=== PATIENT | female | born 1930 | race Hispanic/Latino ===

== ENCOUNTER 2019-07-03 11:42 | Emergency (ER) | payer MEDICARE, OTHER ==
[~2019-07-03] VITALS: Ht 137.2 cm; Wt 49.9 kg
[~2019-07-03 11:42] MED LIST: COUMADIN5 MG PO; CREON DR 24,001 EACH PO; FLORASTOR250 MG PO; LEVOTHYROXINE50 MCG PO; LISINOPRIL20 MG PO; MEGESTROL400 MG/10 PO; MONTELUKAST SOD10 MG PO; TYLENOL WITH C1 EAC1 PO; WARFARIN SODIUM1 MG PO
--- OUTSIDE RECORDS SUMMARY | 2019-07-03 11:45 | XMS REPORT ---
[facility] Address Unknown Phone Unavailable Care Team Providers Care Doctor Of Optometry Name Role Phone George KNOTT Unavailable Unavailable Problems This patient has no known problems. Allergies, Adverse Reactions, Alerts This patient has no known allergies or adverse reactions. Medications This patient has no known medications. Encounters Start Date/Time End Date/Time Encounter Type Admission Type Attending Clinicians Care Facility Care Department Encounter ID 2019-05-19 03:05:00 2019-05-18 21:20:00 Inpatient E [facility] [id number] 2019-01-14 10:30:00 2019-01-14 10:30:00 Outpatient [facility] [id number] 2018-12-31 21:08:00 2018-12-31 14:37:00 Inpatient E [facility] [id number] Results Test Description Test Time Test Comments Text Results Atomic Results Result Comments CT BRAIN [place] [address] Patient Name: ADAMARIS LEE MR #: [id number] : 1930 Age/Sex: 87/F Req #: [id number] Adm Physician: Ordered by: CASA KNOTT MD Report #: [id number] Location: ER Room/Bed: Procedure: [id number] CT/CT BRAIN WO Exam Date: Exam Time: REPORT STATUS: Signed Exams: Head and cervical spine CTs without IV contrast History: Trauma, fall, anticoagulated. Comparison studies: Head CTs of 09/19/2015 and 11/30/2013. Technique: Axial images were obtained from the brain and cervical spine. Coronal and sagittal images reconstructed from the axial data. Intravenous contrast: None Findings: Head CT: Scalp: No abnormalities. Bones: No fractures, blastic or lytic lesions. Extra-axial spaces: No masses. No fluid collections. Brain sulci: Moderately prominent. Ventricles: Moderate compensatory dilatation. No hydrocephalus. Extra-axial spaces: No mass, no fluid collection. Parenchyma: No mass, acute hemorrhage or acute or chronic cortical vascular insults. Confluent hypodensities in the supratentorial white matter are nonspecific but most compatible with chronic small vessel ischemic changes. Sellar/suprasellar region: No abnormalities. Craniocervical junction: The foramen magnum is patent. No Chiari one malformation. Cervical spine CT: Fractures: None. Soft tissues: No gross abnormalities. Atlantoaxial articulation: Intact. Alignment: Exaggerated cervical lordotic curvature may be positional. Minimal retrolisthesis of C3 on C4 is most likely degenerative. Cervicomedullary junction: No abnormalities. The foramen magnum is patent. Vertebrae: No infection or neoplasm. Degenerative changes: Moderately degenerated C3- C4 disc mildly degenerated C4-C5 and C5-C6 discs. No significant canal stenosis. Multilevel uncovertebral and facet arthrosis with mild foraminal stenosis bilaterally at C3-C4 on the right at C4-C5 and on the left at C5-C6. Incidental findings: Atherosclerotic calcifications in the cervical carotid bulbs, carotid siphons and right intradural vertebral artery. Bilateral lens replacements related to previous cataract surgery. IMPRESSION: Head CT: 1. No acute abnormalities. 2. Moderate generalized volume loss. 3. Moderate chronic small vessel ischemic changes. 4. No changes from the previous head CT of 09/19/[address]: 1. No cervical spine fracture or subluxation. 2. Degenerative changes as described. 3. Cannot adequately evaluate ligament, spinal cord and or vascular abnormalities on the basis of this examination. Signed by: Dr. Nancy Cheng M.D. on 05/23/2017 6:20 AM Dictated By: NANCY CHENG MD 9 Transcribed By: PHILIPPE on 05/23/17619 COPY TO: CASA KNOTT MD CT CERVICAL SPINE WO [facility] [address] [address] Patient Name: ADAMARIS LEE MR #: [id number] : 1930 Age/Sex: 87/F Req #: [id number] Adm Physician: Ordered by: CASA KNOTT MD Report #: [id number] Location: ER Room/Bed: Procedure: [id number] CT/CT CERVICAL SPINE WO Exam Date: Exam Time: REPORT STATUS: Signed Exams: Head and cervical spine CTs without IV contrast History: Trauma, fall, anticoagulated. Comparison studies: Head CTs of 09/19/2015 and 11/30/2013. Technique: Axial images were obtained from the brain and cervical spine. Coronal and sagittal images reconstructed from the axial data. Intravenous contrast: None Findings: Head CT: Scalp: No abnormalities. Bones: No fractures, blastic or lytic lesions. Extra-axial spaces: No masses. No fluid collections. Brain sulci: Moderately prominent. Ventricles: Moderate compensatory dilatation. No hydrocephalus. Extra-axial spaces: No mass, no fluid collection. Parenchyma: No mass, acute hemorrhage or acute or chronic cortical vascular insults. Confluent hypodensities in the supratentorial white matter are nonspecific but most compatible with chronic small vessel ischemic changes. Sellar/suprasellar region: No abnormalities. Craniocervical junction: The foramen magnum is patent. No Chiari one malformation. Cervical spine CT: Fractures: None. Soft tissues: No gross abnormalities. Atlantoaxial articulation: Intact. Alignment: Exaggerated cervical lordotic curvature may be positional. Minimal retrolisthesis of C3 on C4 is most likely degenerative. Cervicomedullary junction: No abnormalities. The foramen magnum is patent. Vertebrae: No infection or neoplasm. Degenerative changes: Moderately degenerated C3-C4 disc mildly degenerated C4-C5 and C5-C6 discs. No significant canal stenosis. Multilevel uncovertebral and facet arthrosis with mild foraminal stenosis bilaterally at C3-C4 on the right at C4-C5 and on the left at C5-C6. Incidental findings: Atherosclerotic calcifications in the cervical carotid bulbs, carotid siphons and right intradural vertebral artery. Bilateral lens replacements related to previous cataract surgery. IMPRESSION: Head CT: 1. No acute abnormalities. 2. Moderate generalized volume loss. 3. Moderate chronic small vessel ischemic changes. 4. No changes from the previous head CT of 09/19/[address]: 1. No cervical spine fracture or subluxation. 2. Degenerative changes as described. 3. Cannot adequately evaluate ligament, spinal cord and or vascular abnormalities on the basis of this examination. Signed by: Dr. Nancy Cheng M.D. on 05/23/2017 6:20 AM Dictated By: NANCY CHENG MD 9 Transcribed By: PHILIPPE on 05/23/17619 COPY TO: CASA KNOTT MD CHEST SINGLE (PORTABLE) [place] [address] Patient Name: ADAMARIS LEE MR #: [id number] : 1930 Age/Sex: 87/F Req #: [id number] Adm Physician: Ordered by: CASA KNOTT MD Report #: [id number] Location: ER Room/Bed: Procedure: [id number] DX/CHEST SINGLE (PORTABLE) Exam Date: 05/23/17 Exam Time: 0536 REPORT STATUS: Signed EXAMINATION: CHEST SINGLE (PORTABLE) INDICATION: Status post fall, left lower lateral chest pain COMPARISON: None FINDINGS: TUBES and LINES: None. LUNGS: Lungs are not well inflated. Lungs are clear. There is mild prominence of the central pulmonary vasculature, consistent with pulmonary venous congestion. PLEURA: No pleural effusion or pneumothorax. HEART AND MEDIASTINUM: Cardiac size is moderately enlarged. There are atherosclerotic calcifications within the aorta. BONES AND SOFT TISSUES: No acute osseous lesion. Soft tissues are unremarkable. UPPER ABDOMEN: No free air under the diaphragm. IMPRESSION: No acute thoracic abnormality. Moderate hepatomegaly without decompensation. No evidence of displaced rib fracture. Signed by: Dr. Yuan Patterson M.D. on 05/23/2017 6:59 AM Dictated By: YUAN LEMUS MD 8 Transcribed By: PHILIPPE on 05/23/17658 COPY TO: CASA KNOTT MD CT ABDOMEN/PELVIS W [place] [address] Patient Name: ADAMARIS LEE MR #: [id number] : 1930 Age/Sex: 87/F Req #: [id number] Adm Physician: Ordered by: CASA KNOTT MD Report #: [id number] Location: ER Room/Bed: Procedure: [id number] CT/CT ABDOMEN/PELVIS W Exam Date: 05/23/17 Exam Time: 0507 REPORT STATUS: Signed EXAM: CT Abdomen and Pelvis WITH contrast INDICATION: Trauma status post fall on Coumadin, left flank pain. COMPARISON: None. TECHNIQUE: Abdomen and pelvis were scanned utilizing a multidetector helical scanner from the lung base to the pubic symphysis after administration of IV contrast. Coronal and sagittal reformations were obtained. Routine protocol was performed. Scan was performed when during portal venous phase. IV CONTRAST: 100 mL of Isovue-370 ORAL CONTRAST: None RADIATION DOSE: Total DLP: 326.35 mGy*cm Estimated effective dose: (DLP x 0.015 x size factor) mSv COMPLICATIONS: None FINDINGS: LINES and TUBES: None. LOWER THORAX: Trace of left pleural effusion. HEPATOBILIARY: 1.2 cm hypodensity in segment 6 of the liver, consistent with simple cyst. There are few scattered too small to characterize hypodensities in the liver, likely benign. Central intrahepatic and extrahepatic biliary dilatation, most likely reservoir effect due to cholecystectomy. GALLBLADDER: Gallbladder is surgically absent. SPLEEN: No splenomegaly. PANCREAS: No focal masses or ductal dilatation. ADRENALS: No adrenal nodules KIDNEYS/URETERS: Kidneys enhance symmetrically. No hydronephrosis. No cystic or solid mass lesions. No stones. GI TRACT: No abnormal distention, wall thickening, or evidence of bowel obstruction. There are diverticula within the colon without evidence of diverticulitis. Appendix is normal. PELVIC ORGANS/BLADDER: Unremarkable. LYMPH NODES: No lymphadenopathy. VESSELS: There is moderate atherosclerotic disease in the aorta and major arterial branches. PERITONEUM / RETROPERITONEUM: No free air or fluid. BONES: There are degenerative changes in the lumbar spine. Diffuse demineralization and chronic compression deformities of several lower thoracic and lumbar spines involving T12, L1 and L4. Severe facet hypertrophy at L4-5 and L5-S1 levels. Patient is status post post bilateral femoral ORIF SOFT TISSUES: Multiple bilateral injection granulomas. IMPRESSION: 1. Patient status post trauma without evidence of acute osseous abnormalities, superficial soft tissue, retroperitoneal bleeding or solid organ injury. 2. Small left pleural effusion appears to be simple fluid. Signed by: Dr. Yuan Patterson M.D. on 05/23/2017 7:06 AM Dictated By: YUAN LEMUS MD 5 Transcribed By: PHILIPPE on 05/23/17705 COPY TO: CASA KNOTT MD HIP LEFT 2-3 VW (+/- PELVIS) [place] [address] Patient Name: ADAMARIS LEE MR #: [id number] : 1930 Age/Sex: 87/F Req #: [id number] [facility] Physician: Ordered by: CASA KNOTT MD Report #: [id number] Location: ER Room/Bed: Procedure: [id number] DX/HIP LEFT 2-3 VW (+/- PELVIS) Exam Date: Exam Time: REPORT STATUS: Signed HIP LEFT 2-3 VW (+/- PELVIS) HISTORY: Status post fall. COMPARISON: None FINDINGS: Bones: No displaced fracture. Patient is status post bilateral or left of the femur with intramedullary ronaldo and interlocking screws. Extensive heterotopic calcifications surrounding the right femoral neck. Osseous alignment is within normal limits. Joints: Degenerative changes of the lower lumbar spine. Soft tissues: The soft tissues appear unremarkable. IMPRESSION: No acute osseous abnormality. Signed by: Dr. Yuan Patterson M.D. on 05/23/2017 7:00 AM Dictated By: YUAN LEMUS MD 9 Transcribed By: PHILIPPE on 05/23/17 07 COPY TO: CASA KNOTT MD
[2019-07-03] MEDS ORDERED: PANTOPRAZOLE SO40 MG PO (11:51)
[2019-07-03] MEDS ORDERED: CARVEDILOL3.125 MG PO (11:51)
[2019-07-03] MEDS ORDERED: SODIUM CHLORIDE 0.9% 1000ML 1,000 ML IV STA (11:54)
[2019-07-03] MEDS ORDERED: FAMOTIDINE 20 MG/2 ML VIAL IV ONE (12:30)
[2019-07-03] MEDS ORDERED: ONDANSETRON HCL INJ 2MG/ML 2ML 2 MG/ML VIAL IV ONE (12:30)
--- NOTE | 2019-07-03 12:45 | NUR ---
PATIENTS FAMILY REFUSED A SECOND IV ATTEMPT WITHOUT ULTRASOUND.
[2019-07-03] MEDS ORDERED: DONNATAL/LIDOCAINE/MAALOX 30 ML SUSP PO ONE (13:00)
[2019-07-03 13:18] LABS: BASOPHILS % 0.2 % (0.0-1.0); HEMATOCRIT 40.2 % (34.2-44.1); HEMOGLOBIN 13.5 g/dL (12.0-16.0); LYMPHOCYTES # (AUTO) 1.1 (1.0-3.2); LYMPHOCYTES % 11.9 % (18.0-39.1); MEAN CORPUSCULAR HEMOGLOBIN 33.2 pg (28-32); MEAN CORPUSCULAR HGB CONC 33.6 g/dL (31-35); MEAN CORPUSCULAR VOLUME 98.8 fL (81-99); MONOCYTES # (AUTO) 0.3 (0.2-0.8); MONOCYTES % 3.6 % (4.4-11.3); NEUTROPHILS # (AUTO) 7.6 (2.1-6.9); NEUTROPHILS % 83.4 % (38.7-80.0); PLATELET COUNT 136 x10e3/uL (140-360); RED BLOOD COUNT 4.07 x10e6/uL (3.6-5.1)
[2019-07-03 13:52] LABS: BILIRUBIN,URINE NEGATIVE (NEGATIVE); CLARITY,URINE SL CLOUDY (CLEAR); COLOR,URINE YELLOW (YELLOW); KETONES,URINE 1+ (NEGATIVE); LEUKOCYTE ESTERASE ,URINE MODERATE (NEGATIVE); NITRITE,URINE POSITIVE (NEGATIVE); PROTEIN,URINE DIPSTICK 1+ (NEGATIVE); URINE UROBILINOGEN 0.2 mg/dL (0.2 - 1)
[2019-07-03 13:52] LABS: ALANINE AMINOTRANSFERASE 12 IU/L (0-55); ALBUMIN 2.3 g/dL (3.5-5.0); ALBUMIN/GLOBULIN RATIO 0.6 (0.8-2.0); ALKALINE PHOSPHATASE 52 IU/L (40-150); ANION GAP 13.4 mmol/L (8-16); BLOOD UREA NITROGEN 23 mg/dL (7-26); BUN/CREATININE RATIO 32 (6-25); CALCIUM 7.7 mg/dL (8.4-10.2); CARBON DIOXIDE 19 mmol/L (22-29); CHLORIDE 111 mmol/L (98-107); CREATININE, SERUM 0.73 mg/dL (0.57-1.11); EST GLOMERULAR FILTRATION RATE > 60 ML/MIN (60-); GLUCOSE 86 mg/dL (74-118); LIPASE 18 U/L (8-78); POTASSIUM 3.4 mmol/L (3.5-5.1); SODIUM 140 mmol/L (136-145)
[2019-07-03 13:56] LABS: INR 5.75; PROTHROMBIN TIME 52.6 seconds (11.9-14.5)
--- NOTE | 2019-07-03 13:58 | NUR ---
Received call from Lab with a report of critical PT of 52.6 and INR of 5.75 at 1355. made aware.
[2019-07-03 14:00] LABS: BACTERIA,URINE RARE /HPF; EPITHELIAL CELLS,URINE FEW /LPF; RBC,URINE 0-5 /HPF (0-5)
--- NOTE | 2019-07-03 14:57 | Diagnostic Imaging Report ---
CT Abdomen And Pelvis with Intravenous Contrast INDICATION: Abdominal pain, diarrhea ^ABD PAIN ^Y TECHNIQUE: Thin collimation axial images obtained from the diaphragm to the level of the pubic symphysis following the uneventful administration of 100 cc of low osmolar, nonionic intravenous contrast. Dose reduction techniques used: Automated exposure control, adjustment of the mAs and/or kVp according to patient size, standardized low-dose protocol, and/or iterative reconstruction technique. RADIATION DOSE: Total DLP: 180.02 mGy*cm Estimated effective dose: (DLP x 0.015 x size factor) mSv CTDIvol has been reviewed. It is below the limits set by the Radiation Protocol Committee (RPC). COMPARISON: CT abdomen/pelvis 05/23/2017. ABDOMEN FINDINGS: Lung Bases: Diffuse hyperinflation. The descending thoracic aorta is tortuous. The heart is enlarged. Postoperative changes of the GE junction are stable suggestive of fundoplication. Liver: Several scattered low attenuating lesions in each lobe are stable.. Gallbladder: Absent Biliary tree: Diffuse intrahepatic and extra hepatic biliary ductal dilatation is stable. The common bile duct measures 11 mm in diameter with squared shoulders at the ampulla. No intraluminal filling defects. Pancreas: Diffuse fatty atrophy. No mass or ductal dilatation. Spleen: Normal in size. No evidence of mass.. Adrenal Glands: No evidence for mass. Kidneys: Right: Normal enhancement. A cyst in the anterior lower pole measures 9 mm and is grossly stable. No hydronephrosis. Left: Normal enhancement. A lower pole cyst measures 6 mm and is stable. No hydronephrosis. Lymph Nodes: No lymphadenopathy. Aorta: Diffusely calcified and tortuous. No aneurysmal dilatation PELVIS FINDINGS: Bowel: Stomach: Collapsed. No focal mural thickening. Small Bowel: Normal in caliber with normal wall thickness. Large Bowel: Scattered diverticulosis. No associated inflammation. No significant stool burden. No dilatation. Appendix: Normal appendix. Bladder: Mildly underdistended but otherwise normal. The uterus is absent. No adnexal mass. Peritoneum/retroperitoneum: No free fluid or fluid collection Bones: The bones are diffusely demineralized. Bilateral intramedullary rods and pins in the proximal femurs are stable. No associated fracture or lucency to suggest loosening. Compression fractures of T12, L1, and L4 are stable. There are no new compression fractures. Soft tissues: Fat-containing left umbilical hernia measures 12 mm. No bowel containing hernia. IMPRESSION: 1. Mild burden of diverticulosis coli. No evidence for bowel obstruction or inflammation. Normal appendix. 2. Stable postoperative changes of the GE junction. 3. Status post cholecystectomy with stable intrahepatic and extrahepatic biliary ductal dilatation. 4. Hepatic and renal cysts appear stable. 5. Stable spinal compression fractures. Signed by: Dr. Dorene Stokes MD on 07/03/2019 2:54 PM
[2019-07-03] MEDS ORDERED: PEPCID20 MG PO (15:07)
[2019-07-03 15:35] VITALS: BP 130/65
[2019-07-03] MEDS ORDERED: IOPAMIDOL 370 MG/ML 200 ML INFUS..BTL INJ ONE (20:29)
[2019-07-03] MEDS ORDERED: SODIUM CHLORIDE 0.9% 50ML 50 ML ONE (20:29)
== END 2019-07-03 15:38 | disposition home or self-care (01) ==
LOC: ER 11:42
DX: R10.33 Periumbilical pain (principal); R10.13 Epigastric pain; R19.7 Diarrhea, unspecified; K21.0 Gastro-esophageal reflux disease with esophagitis
CPT/HCPCS: 36415; 74177; 80053; 81001; 83690; 85025; 85610; 93005; 99284; J2405; J7030; Q9967

== ENCOUNTER 2019-11-29 10:21 | Inpatient (IN) | payer MEDICARE, OTHER ==
[~2019-11-29] VITALS: Ht 137.2 cm; Wt 44.9 kg
[2019-11-29] MEDS: HYDROCODONE/APAP 7.5MG-325MG 1 EA TAB PO PRN (01:53)
[~2019-11-29 10:21] MED LIST changes: +CARVEDILOL3.125 MG PO; +PANTOPRAZOLE SO40 MG PO; +PEPCID20 MG PO
[2019-11-29] MEDS ORDERED: PIPER-TAZ 3.375 GM 50 ML IV STA (10:37)
[2019-11-29] MEDS ORDERED: VANCOMYCIN 1GM/NS 250 ML 250 ML IV ONE (11:00)
[2019-11-29 12:45] LABS: BASOPHILS % 0.2 % (0.0-1.0); EOSINOPHILS % 0.2 % (0.0-6.0); HEMOGLOBIN 12.3 g/dL (12.0-16.0); LYMPHOCYTES # (AUTO) 1.1 (1.0-3.2); LYMPHOCYTES % 22.7 % (18.0-39.1); MEAN CORPUSCULAR HEMOGLOBIN 33.4 pg (28-32); MEAN CORPUSCULAR HGB CONC 32.4 g/dL (31-35); MEAN CORPUSCULAR VOLUME 103.3 fL (81-99); MONOCYTES # (AUTO) 0.2 (0.2-0.8); MONOCYTES % 3.6 % (4.4-11.3); NEUTROPHILS # (AUTO) 3.7 (2.1-6.9); NEUTROPHILS % 72.9 % (38.7-80.0); PLATELET COUNT 246 x10e3/uL (140-360); RED BLOOD COUNT 3.68 x10e6/uL (3.6-5.1); RED CELL DISTRIBUTION WIDTH 14.4 % (11.7-14.4)
[2019-11-29 12:58] LABS: INR 1.82; PROTHROMBIN TIME 22.4 seconds (11.9-14.5)
[2019-11-29 12:59] LABS: PARTIAL THROMBOPLASTIN TIME 24.8 seconds (23.8-35.5)
[2019-11-29] MEDS ORDERED: WARFARIN SODIUM3 MG PO (13:05)
[2019-11-29] MEDS ORDERED: LASIX20 MG PO (13:05)
[2019-11-29] MEDS ORDERED: MYRBETRIQ50 MG (13:05)
[2019-11-29 13:08] LABS: B-TYPE NATRIURETIC PEPTIDE2 100.4 pg/mL (0-100)
[2019-11-29 13:09] LABS: ALANINE AMINOTRANSFERASE 13 IU/L (0-55); ALBUMIN/GLOBULIN RATIO 0.9 (0.8-2.0); ALKALINE PHOSPHATASE 53 IU/L (40-150); ANION GAP 10.5 mmol/L (8-16); BLOOD UREA NITROGEN 17 mg/dL (7-26); BUN/CREATININE RATIO 24 (6-25); CALCIUM 8.3 mg/dL (8.4-10.2); CARBON DIOXIDE 26 mmol/L (22-29); CHLORIDE 109 mmol/L (98-107); CREATINE KINASE 45 IU/L (29-168); CREATININE, SERUM 0.72 mg/dL (0.57-1.11); EST GLOMERULAR FILTRATION RATE > 60 ML/MIN (60-); GLUCOSE 92 mg/dL (74-118); SODIUM 143 mmol/L (136-145)
[2019-11-29 13:14] LABS: POTASSIUM 2.5 mmol/L (3.5-5.1)
[2019-11-29 13:18] LABS: CLARITY,URINE HAZY (CLEAR); COLOR,URINE YELLOW (YELLOW); LEUKOCYTE ESTERASE ,URINE TRACE (NEGATIVE); NITRITE,URINE POSITIVE (NEGATIVE); PROTEIN,URINE DIPSTICK TRACE (NEGATIVE)
[2019-11-29 13:19] LABS: BILIRUBIN,URINE SMALL (NEGATIVE); KETONES,URINE 1+ (NEGATIVE); URINE UROBILINOGEN 0.2 mg/dL (0.2 - 1)
[2019-11-29] MEDS ORDERED: POTASSIUM CHLORIDE 20 MEQ TAB CR PO STA (13:25)
[2019-11-29 13:46] LABS: BACTERIA,URINE MODERATE /HPF; EPITHELIAL CELLS,URINE MODERATE /LPF; WBC,URINE (MAN) 21-50 /HPF (0-5)
[2019-11-29 13:47] LABS: AMORPHOUS SEDIMENT,URINE FEW (FEW)
[2019-11-29] MEDS ORDERED: POTASSIUM CHLORIDE 20 MEQ TAB CR PO ONE (14:25)
[2019-11-29 15:00] VITALS: BP 156/75
--- NOTE | 2019-11-29 15:00 | NUR ---
PATIENT RECEIVED FROM ER PER STRETCHER. ALERT AND VERBALLY RESPONSIVE, MOSTLY ETHIOPIAN SPEAKING. SKIN WARM AND DRY TO TOUCH. REDNESS AND SWELLING TO LEFT LEG WITH SOME OPEN BLISTERS, RASH UNDER BREASTS. RESPIRATION EVEN AND UNLABORED. TELEMETRY BOX [address] BED IN LOWER POSITION, CALL LIGHT AT REACH. INSTRUCTED TO CALL FOR ASSISTANCE NEEDED.
[2019-11-29 15:45] VITALS: BP 156/75
--- NOTE | 2019-11-29 16:42 | NUR ---
NOTIFIED OF PATIENT ARRIVAL TO THE FLOOR. NEW ORDERS RECEIVED.
--- NOTE | 2019-11-29 16:48 | Diagnostic Imaging Report ---
EXAMINATION: CHEST SINGLE (PORTABLE) INDICATION: Leg swelling COMPARISON: None FINDINGS: LINES/TUBES:None LUNGS:The lungs are moderately inflated. No focal consolidation.. There is perihilar fullness and indistinctness of the pulmonary vasculature. PLEURA:Small bilateral pleural effusions. MEDIASTINUM:The cardiomediastinal silhouette appears normal in size and shape. Atherosclerotic calcifications of the thoracic aorta. BONES/SOFT TISSUES:Right humerus ORIF hardware. Surgical clips in the left upper quadrant. ABDOMEN:No free air under the diaphragm. IMPRESSION: No focal pneumonia or pulmonary edema. Signed by: Ninfa Gerber MD on 11/29/2019 4:45 PM
[2019-11-29] MEDS: FAMOTIDINE 20 MG TAB PO SCH (17:27)
[2019-11-29] MEDS: WARFARIN SOD 3 MG TAB PO SCH (17:27)
[2019-11-29] MEDS: CARVEDILOL 3.125 MG TAB PO SCH (17:28)
[2019-11-29 20:00] VITALS: BP 174/72
[2019-11-29] MEDS: CEFEPIME 1GM/NS 0.9% 50 ML 50 ML IV SCH (21:19)
[2019-11-30] VITALS (7 sets, daily range): BP systolic 101–156; BP diastolic 51–67
[2019-11-30] MEDS: VANCOMYCIN 1GM/NS 250 ML 250 ML IV SCH ×3 (02:37→21:00)
[2019-11-30] MEDS: CEFEPIME 1GM/NS 0.9% 50 ML 50 ML IV SCH ×3 (06:19→22:22)
[2019-11-30] MEDS: LEVOTHYROXINE SODIUM 50 MCG TAB PO SCH (06:19)
--- NOTE | 2019-11-30 07:10 | NUR ---
RECEIVED REPORT FROM TRAINING ENGINEER NURSE, PATIENT IS A&OX2, PLEASANTLY CONFUSED. STOVE MECHANIC IN PLACE. CALL LIGHT WITHIN REACH, BED IS LOW AND LOCKED, SIDE RAILS UPX2, ALARM BED ON.
[2019-11-30] MEDS: FAMOTIDINE 20 MG TAB PO SCH ×2 (08:52→16:51)
[2019-11-30] MEDS: CARVEDILOL 3.125 MG TAB PO SCH ×2 (08:53→16:51)
[2019-11-30] MEDS: FUROSEMIDE 20 MG TAB PO SCH (08:53)
[2019-11-30] MEDS: HYDROCODONE/APAP 7.5MG-325MG 1 EA TAB PO PRN (09:05)
[2019-11-30] MEDS: NYSTATIN 15 GM POWDER UD BTL TOP SCH ×2 (13:36→16:52)
[2019-11-30 15:10] LABS: INR 3.1; PROTHROMBIN TIME 34.4 seconds (11.9-14.5)
[2019-11-30] MEDS: WARFARIN SOD 3 MG TAB PO SCH (16:51)
--- NOTE | 2019-11-30 20:38 | Diagnostic Imaging Report ---
EXAMINATION: CHEST XRAY LINE PLACEMENT INDICATION: ^PICC LINE ^[id number] ^1919 ^Y COMPARISON: Chest radiograph 11/29/2019 FINDINGS: AP view TUBES and LINES: Interval placement of a left PICC with tip overlying the cavoatrial junction. LUNGS: Low lung volumes. Bilateral reticular opacities may reflect chronic interstitial lung disease. No new consolidations or pulmonary edema. PLEURA: Trace left pleural effusion. No pneumothorax. HEART AND MEDIASTINUM: The cardiac silhouette is prominent. Tortuous thoracic aorta with associated calcifications in the aortic arch.. BONES AND SOFT TISSUES: Partially visualized hardware in the right humeral head. Kyphosis of the thoracic spine. Soft tissues are unremarkable. UPPER ABDOMEN: No free air under the diaphragm. IMPRESSION: Interval placement of a left PICC with tip overlying the cavoatrial junction. No pneumothorax. Chronic interstitial changes throughout the lungs. Signed by: Dr. Ines Fine M.D. on 11/30/2019 8:34 PM
[2019-11-30] MEDS: SODIUM CHLORIDE 0.9% 1000ML 1,000 ML IV SCH (20:59)
[2019-12-01] VITALS (7 sets, daily range): BP systolic 123–143; BP diastolic 58–68
[2019-12-01] MEDS: ACETAMINOPHEN/CODEINE 300MG - 30MG TAB PO PRN ×2 (05:37→23:55)
[2019-12-01] MEDS: LEVOTHYROXINE SODIUM 50 MCG TAB PO SCH (05:37)
[2019-12-01] MEDS: CEFEPIME 1GM/NS 0.9% 50 ML 50 ML IV SCH ×3 (05:37→23:00)
--- NOTE | 2019-12-01 07:05 | NUR ---
RECEIVED REPORT FROM BASE WAD OPERATOR ADJUSTER NURSE, PATIENT LAYING IN BED. BOILER HOUSE MECHANIC IN PLACE. CALL LIGHT WITHIN REACH, BED IS LOW AND LOCKED, SIDE RAILS UPX2, BED ALARM ON.
[2019-12-01 07:23] LABS: BASOPHILS % 0.3 % (0.0-1.0); EOSINOPHILS # (AUTO) 0.1 (0.0-0.4); EOSINOPHILS % 2.4 % (0.0-6.0); HEMATOCRIT 30.4 % (34.2-44.1); LYMPHOCYTES # (AUTO) 0.9 (1.0-3.2); MEAN CORPUSCULAR HEMOGLOBIN 33.7 pg (28-32); MEAN CORPUSCULAR HGB CONC 32.9 g/dL (31-35); MEAN CORPUSCULAR VOLUME 102.4 fL (81-99); MONOCYTES # (AUTO) 0.4 (0.2-0.8); MONOCYTES % 6.6 % (4.4-11.3); NEUTROPHILS # (AUTO) 4.5 (2.1-6.9); PLATELET COUNT 180 x10e3/uL (140-360); RED BLOOD COUNT 2.97 x10e6/uL (3.6-5.1); RED CELL DISTRIBUTION WIDTH 14.6 % (11.7-14.4)
[2019-12-01 07:42] LABS: ALANINE AMINOTRANSFERASE 9 IU/L (0-55); ALBUMIN 1.9 g/dL (3.5-5.0); ALBUMIN/GLOBULIN RATIO 0.6 (0.8-2.0); ALKALINE PHOSPHATASE 44 IU/L (40-150); MAGNESIUM 1.3 MG/DL (1.3-2.1)
[2019-12-01 07:58] LABS: ANION GAP 7.7 mmol/L (8-16); BLOOD UREA NITROGEN 9 mg/dL (7-26); BUN/CREATININE RATIO 17 (6-25); CALCIUM 7.2 mg/dL (8.4-10.2); CARBON DIOXIDE 21 mmol/L (22-29); CHLORIDE 112 mmol/L (98-107); CREATININE, SERUM 0.54 mg/dL (0.57-1.11); EST GLOMERULAR FILTRATION RATE > 60 ML/MIN (60-); GLUCOSE 69 mg/dL (74-118); SODIUM 138 mmol/L (136-145)
[2019-12-01 08:00] LABS: POTASSIUM 2.7 mmol/L (3.5-5.1)
[2019-12-01] MEDS: VANCOMYCIN 1GM/NS 250 ML 250 ML IV SCH (08:00)
--- NOTE | 2019-12-01 08:06 | NUR ---
NOTIFIED DR. ROBLEDO OF CRITICAL POTASSIUM 2.7, NEW ORDERS FOR PO POTASSIUM 40MEQ, NOW AND 40MEQ PO POTASSIUM IN FOUR HOURS.
[2019-12-01] MEDS ORDERED: POTASSIUM CHLORIDE 20 MEQ TAB CR PO SCH ×2 (08:30→12:00)
[2019-12-01] MEDS: CARVEDILOL 3.125 MG TAB PO SCH ×2 (08:51→17:51)
[2019-12-01] MEDS: FAMOTIDINE 20 MG TAB PO SCH ×2 (08:51→17:51)
[2019-12-01] MEDS: FUROSEMIDE 20 MG TAB PO SCH (08:51)
[2019-12-01] MEDS: NYSTATIN 15 GM POWDER UD BTL TOP SCH ×2 (08:51→17:52)
[2019-12-01 09:10] LABS: ANISOCYTOSIS SLIGHT; BAND NEUTROPHILS % (MANUAL) 1 %; EOSINOPHILS % (MANUAL) 1 % (0-7); LYMPHOCYTES % (MANUAL) 13 % (19-48); MONOCYTES % (MANUAL) 2 % (3.4-9.0); NEUTROPHILS % (MANUAL) 83 % (40-74); PLATELET ESTIMATE ADEQUATE; PLATELET MORPHOLOGY COMMENT NORMAL
--- NOTE | 2019-12-01 09:48 | NUR ---
NOTIFIED DR. ROBLEDO THAT PATIENT'S VANC TROUGH IS 19.1, PER DR. ROBLEDO HOLD DOSE FOR NOW.
--- NOTE | 2019-12-01 09:53 | NUR ---
NOTIFIED DR. ASHLEY NEWTON, AL. Preston PA THAT PATIENTS' VANC TROUGH IS 19.1. PER AL CHANGE DOSE TO 750MG IVPB.
[2019-12-01] MEDS ORDERED: VANCOMYCIN 750MG/NS 150ML IVPB 150 ML IV SCH (11:00)
--- NOTE | 2019-12-01 11:00 | NUR ---
Pt unavailable at this time. Staff performing procedure bedside. I will follow up as able. [facility]ON [facility] O: [phone]
--- NOTE | 2019-12-01 12:25 | NUR ---
LEFT UPPER ARM PICC LINE DRESSING NOTED TO BE TUGGED BY PATIENT. PICC LINE NURSE CHANGED DRESSING AND SECURED PICC. CHEST XRAY OBTAINED FOR PLACEMENT. PER RADIOLOGY OK TO USE PICC.
--- NOTE | 2019-12-01 12:57 | Diagnostic Imaging Report ---
EXAM: CHEST SINGLE (PORTABLE) DATE: 12/01/2019 11:25 AM INDICATION: PICC line position Indication COMPARISON: 11/30/2019 FINDINGS: Left-sided PICC line identified with distal tip terminating appropriately over the expected location of the cavoatrial junction. Again noted are bilateral increased reticulonodular opacities, unchanged from the prior examination and may reflect chronic interstitial lung disease. No evidence for new large focal consolidation, pneumothorax, or significant pleural effusion. The cardiomediastinal silhouette is stable in appearance. Surgical hardware again noted with the proximal right humerus. No acute osseous abnormality is identified. IMPRESSION: Left-sided PICC line identified in appropriate position. Signed by: Dr. Moises Hunter MD on 12/01/2019 12:54 PM
--- NOTE | 2019-12-01 14:00 | NUR ---
ROUNDING ON PATIENT, PATIENT TRYING TO GET OUT OF BED, DIAPER CHANGED WITH ASSISTANCE OF TECH, DRAW SHEETS STRAIGHTEN OUT, PATIENT PULLED UP IN BED, NO DISTRESS NOTED, BED LOW AND LOCKED, SIDE RAILS UPX3, BED ALARM ON, CALL LIGHT WITHIN REACH.
[2019-12-01] MEDS: SODIUM CHLORIDE 0.9% 1000ML 1,000 ML IV SCH (15:45)
[2019-12-01 16:25] LABS: INR 3.11; PROTHROMBIN TIME 34.5 seconds (11.9-14.5)
--- NOTE | 2019-12-01 17:43 | NUR ---
WALKED IN PATIENT'S ROOM, PATIENT IS A&OX1. REORIENTED PATIENT TO PLACE AND TIME. PATIENT'S GOWN IS BLOODY, LEFT UPPER ARM PICC LINE OUT OF PLACE, PICC LINE TUBING IN PATIENT'S HAND. CHANGED PATIENT'S GOWN AND DIAPER WITH ASSISTANCE OF TECH. BED IS LOW AND LOCKED, SIDE RAILS UPX3, BED ALARM ON ZONE 2, CALL LIGHT WITHIN REACH. NOTIFIED DR. ROBLEDO OF EVENTS. PER DR. ROBLEDO NEW ORDER FOR PICC LINE INSERTION AND SITTER.
[2019-12-01] MEDS: WARFARIN SOD 3 MG TAB PO SCH (17:52)
--- NOTE | 2019-12-01 18:19 | NUR ---
SPOKE TO PATIENT'S DAUGHTER POOJA TO NOTIFY THAT PATIENT PULLED OUT LEFT UPPER ARM PICC LINE AND THAT PATIENT IS CONFUSED. OBTAINED TELEPHONE CONSENT.
--- NOTE | 2019-12-01 19:10 | NUR ---
MICKEY CALLED PATIENT VIA [employer].
--- NOTE | 2019-12-01 19:20 | NUR ---
SPOKE WITH PATIENT'S DAUGHTER OVER PHONE, NOTIFIED PATIENT'S DAUGHTER THAT PICC LINE NURSE IS HERE IN BUILDING PER RADIOLOGY.
--- NOTE | 2019-12-01 19:30 | NUR ---
GAVE REPORT TO MANUAL WINDER NURSE. PATIENT IS IN BED ON PHONE CALL. BED LOW AND LOCKED, SIDE RAILS UPX3, CALL LIGHT WITHIN REACH, BED ALARM ON ZONE 2. INSTRUCTED PATIENT TO CALL BEFORE TRYING TO GET UP OR IF ANYTHING NEEDED.
--- NOTE | 2019-12-01 22:19 | Diagnostic Imaging Report ---
EXAMINATION: CHEST XRAY LINE PLACEMENT INDICATION: PICC placement. COMPARISON: Chest radiograph 12/01/2019. FINDINGS: TUBES and LINES: Interval removal of left arm PICC. Interval placement of right arm PICC which terminates at the cavoatrial junction. LUNGS: Hyperinflated lungs. Chronic patchy left basilar opacity, which may represent scarring or atelectasis. Mild bilateral reticular opacities are unchanged. PLEURA: Possible trace left pleural effusion. HEART AND MEDIASTINUM: The cardiomediastinal silhouette is unremarkable. The aorta is ectatic and tortuous with atherosclerotic calcifications. BONES AND SOFT TISSUES: No acute osseous abnormality. Partially seen right proximal humerus fixation hardware. Diffuse osteopenia. UPPER ABDOMEN: No free air under the diaphragm. IMPRESSION: Interval placement of right arm PICC which terminates at cavoatrial junction. No evidence of pneumothorax. Signed by: Dr. Jennifer Ledezma MD on 12/01/2019 10:16 PM
[2019-12-02] VITALS (7 sets, daily range): BP systolic 114–148; BP diastolic 54–67
[2019-12-02] MEDS: VANCOMYCIN 750MG/NS 150ML IVPB 150 ML IV SCH ×2 (01:30→13:21)
[2019-12-02 06:05] LABS: BASOPHILS % 0.3 % (0.0-1.0); EOSINOPHILS % 0.5 % (0.0-6.0); HEMATOCRIT 34.9 % (34.2-44.1); HEMOGLOBIN 11.2 g/dL (12.0-16.0); LYMPHOCYTES # (AUTO) 1.1 (1.0-3.2); LYMPHOCYTES % 18.3 % (18.0-39.1); MEAN CORPUSCULAR HEMOGLOBIN 33.5 pg (28-32); MEAN CORPUSCULAR HGB CONC 32.1 g/dL (31-35); MEAN CORPUSCULAR VOLUME 104.5 fL (81-99); MONOCYTES # (AUTO) 0.6 (0.2-0.8); MONOCYTES % 9.2 % (4.4-11.3); NEUTROPHILS # (AUTO) 4.2 (2.1-6.9); NEUTROPHILS % 70.9 % (38.7-80.0); PLATELET COUNT 169 x10e3/uL (140-360); RED BLOOD COUNT 3.34 x10e6/uL (3.6-5.1); RED CELL DISTRIBUTION WIDTH 14.5 % (11.7-14.4)
[2019-12-02 06:08] LABS: INR 3.35; PROTHROMBIN TIME 36.6 seconds (11.9-14.5)
[2019-12-02 06:21] LABS: ALANINE AMINOTRANSFERASE 9 IU/L (0-55); ALBUMIN/GLOBULIN RATIO 0.6 (0.8-2.0); ALKALINE PHOSPHATASE 49 IU/L (40-150); ANION GAP 9.9 mmol/L (8-16); BLOOD UREA NITROGEN 10 mg/dL (7-26); BUN/CREATININE RATIO 17 (6-25); CALCIUM 7.8 mg/dL (8.4-10.2); CARBON DIOXIDE 23 mmol/L (22-29); CHLORIDE 108 mmol/L (98-107); EST GLOMERULAR FILTRATION RATE > 60 ML/MIN (60-); GLUCOSE 81 mg/dL (74-118); POTASSIUM 3.9 mmol/L (3.5-5.1); SODIUM 137 mmol/L (136-145)
--- NOTE | 2019-12-02 06:45 | NUR ---
patient condition throughout the night was stable, patient was monitored by one staff member throughout the night with no issues. No falls, no injury, did not pull out iv.patient endorsed to next shift for continuity of care.
[2019-12-02] MEDS: CEFEPIME 1GM/NS 0.9% 50 ML 50 ML IV SCH ×3 (06:53→22:49)
[2019-12-02] MEDS: LEVOTHYROXINE SODIUM 50 MCG TAB PO SCH (06:53)
--- NOTE | 2019-12-02 09:05 | NUR ---
CALL RECEIVED FROM PT'S GRANDSON, ELIER TRIPLETT @ [phone] AND HIS MOTHER, POOJA TRIPLETT. STATES DR. ROBLEDO INSTRUCTED THEM TO CALL THE CM TO REQUEST A TRANSFER TO ANOTHER HOSPITAL WHERE SHE CAN RECEIVE VISITORS. STATES SHE IS NOT DOING WELL ALONE. CM DISCUSSED TRANSFER CRITERIA AND PROCESS. FAMILY DID NOT HAVE AN ACCEPTING MD. FAMILY WILL CALL DR. ROBLEDO TO DISCUSS TRANSFER OR DISCHARGE TO TAKE THE PT TO [facility]. CM ALSO ENCOURAGED THE FAMILY TO SPEAK W [facility] TO ENSURE THEY WILL BE ABLE TO VISIT. ALSO DISCUSSED ALTERNATIVES TO COMMUNICATING WITH THE PT. STATES THEY HAVE TRIED F[facility], BUT STILL NOT WORKING FOR THE PT. WILL AWAIT PLAN.
[2019-12-02] MEDS: FUROSEMIDE 20 MG TAB PO SCH (09:13)
[2019-12-02] MEDS: CARVEDILOL 3.125 MG TAB PO SCH ×2 (09:13→17:19)
[2019-12-02] MEDS: FAMOTIDINE 20 MG TAB PO SCH ×2 (09:13→17:19)
[2019-12-02] MEDS: NYSTATIN 15 GM POWDER UD BTL TOP SCH ×2 (09:13→17:19)
[2019-12-02] MEDS: SODIUM CHLORIDE 0.9% 1000ML 1,000 ML IV SCH (12:00)
[2019-12-02] MEDS: WARFARIN SOD 3 MG TAB PO SCH (17:00)
[2019-12-02] MEDS: ACETAMINOPHEN/CODEINE 300MG - 30MG TAB PO PRN (17:30)
[2019-12-03] VITALS (7 sets, daily range): BP systolic 122–162; BP diastolic 60–79
[2019-12-03] MEDS: VANCOMYCIN 750MG/NS 150ML IVPB 150 ML IV SCH ×2 (01:30→13:08)
[2019-12-03] MEDS: ACETAMINOPHEN/CODEINE 300MG - 30MG TAB PO PRN ×3 (03:26→20:38)
[2019-12-03] MEDS: CEFEPIME 1GM/NS 0.9% 50 ML 50 ML IV SCH ×3 (06:18→21:20)
[2019-12-03] MEDS: LEVOTHYROXINE SODIUM 50 MCG TAB PO SCH (06:18)
--- NOTE | 2019-12-03 07:00 | NUR ---
BEDSIDE SHIFT REPORT RECEIVED FROM THE DISTRICT GAUGER RN. BED IS LOW AND LOCKED. SIDE RAILS X2. CALL LIGHT WITH IN EASY REACH. SITTER AT BEDSIDE. PT DENIES NEEDS AT THIS TIME.
[2019-12-03 07:02] LABS: INR 2.68; PROTHROMBIN TIME 30.6 seconds (11.9-14.5)
--- NOTE | 2019-12-03 07:20 | NUR ---
Patient endorsed to next shift for continuity of care.
--- NOTE | 2019-12-03 08:23 | Progress Note ---
DATE: SUBJECTIVE: An 89-year-old female with a history of cellulitis of the lower extremity. The patient is still confused, has a sitter. No nausea, no vomiting. Complains of pain in bilateral lower extremities and is very tender on touching. The patient is alert and oriented, is talkative. No updates from the sitter. PHYSICAL EXAMINATION: VITAL SIGNS: Temperature is 98.5, pulse of 68, respirations of 18, blood pressure is 134/62, and pulse oximetry of 95%. HEENT: Normocephalic, atraumatic. GENERAL: The patient looks very frail and fatigued, however, pleasant. CVS: S1 and S2 normal. Regular rate and rhythm. ABDOMEN: Nontender nondistended. LUNGS: Clear to auscultation bilaterally. EXTREMITIES: Bilateral lower extremity with blood blisters and also left lower extremity with cellulitis. LABORATORY VALUES: Urine; E coli and Klebsiella. The patient sensitivity noted otherwise laboratory values; white count is 5.96, hemoglobin 11.2, hematocrit of 34.9. Chemistries potassium is normalized to 3.9, sodium 137, BUN and creatinine is normal. ASSESSMENT: 1. Left lower extremity cellulitis. The patient is currently on vancomycin and cefepime. 2. Lower extremity blood blisters. Continue watching. 3. Urinary tract infection. The patient has E coli and Klebsiella sensitive to antibiotics. 4. Hypothyroidism. 5. Debility. 6. Atrial fibrillation. PLAN: Continue the same medication. We will continue monitoring the patient. Further recommendation per clinical course and we will need physical therapy in placement for disposition. MD EMANUEL Felipe/MODL /[id number]
[2019-12-03] MEDS: SODIUM CHLORIDE 0.9% 1000ML 1,000 ML IV SCH (08:24)
[2019-12-03] MEDS: FAMOTIDINE 20 MG TAB PO SCH ×2 (08:24→16:27)
[2019-12-03] MEDS: FUROSEMIDE 20 MG TAB PO SCH (08:25)
[2019-12-03] MEDS: CARVEDILOL 3.125 MG TAB PO SCH ×2 (08:25→16:28)
[2019-12-03] MEDS: NYSTATIN 15 GM POWDER UD BTL TOP SCH ×2 (08:25→16:28)
--- NOTE | 2019-12-03 11:08 | NUR ---
PAGEMervin YOUNG COUMADIN. INFORMED DR INR LEVEL 2.68. RESTART COUMADIN PER THE .
--- NOTE | 2019-12-03 13:07 | NUR ---
FRANCISCO SOUTH AND INFORMED PT VANC TROUGH LEVEL 23.
--- NOTE | 2019-12-03 15:20 | NUR ---
late entery consult 11/30/2019 [id number]
[2019-12-03] MEDS: WARFARIN SOD 3 MG TAB PO SCH (16:28)
--- NOTE | 2019-12-03 18:10 | Progress Note ---
DATE: SUBJECTIVE: Ms. White was confused but alert. Does not seem to be in acute distress. PHYSICAL EXAMINATION: GENERAL: Currently, alert and oriented, does not seem to be in acute distress. VITAL SIGNS: Stable. Afebrile. HEENT: She is not icteric. NECK: Supple. CHEST: Clear. HEART: S1, S2. No murmurs. ABDOMEN: Soft. EXTREMITIES: The leg seems to be much better. IMPRESSION: 1. Cellulitis of the leg, seems to be better. 2. Dementia. Continue with antibiotic as ordered. We will follow. 3. Debility. 4. Urinary tract infection from dehydration. 5. Atrial fibrillation. She is currently on cefepime and vancomycin. Vancomycin level adjusted. We will follow. MD JONO La/JAYCE /[id number]
--- NOTE | 2019-12-03 19:00 | NUR ---
BEDSIDE SHIFT REPORT GIVEN TO THE ELECTRONIC WIRER RN. PT DENIED FURTHER NEEDS. SITTER AT BEDSIDE.
--- NOTE | 2019-12-03 20:00 | NUR ---
Received change of shift report from AM nurse. Walking rounds completed.
--- NOTE | 2019-12-03 20:56 | Consultation ---
DATE OF CONSULTATION: 11/30/2019 HISTORY OF PRESENT ILLNESS: This patient who was seen examined on November 29; I thought I dictated the consult, but for some reason I do not see it. The patient who is an 89-year-old female with history of dementia, not a really good source of information, comes in with redness and swelling of her foot. The patient comes in, she also has history of hypertension, hypothyroidism, GERD, angina, and coronary artery disease. PAST SURGICAL HISTORY: Hysterectomy, femur fracture surgical repair in April 2013. ALLERGIES: NKA. SOCIAL HISTORY: No smoking, drug abuse, or alcohol abuse from a correction. FAMILY HISTORY: Could not be obtained. The patient was totally confused. She comes in with redness and swelling of her left leg from above the ankle to the knee. No specific trauma. The patient was admitted. Infectious was consulted. There is no family. REVIEW OF SYSTEMS: Could not be obtained. PHYSICAL EXAMINATION: GENERAL: Currently alert and confused. VITAL SIGNS: Stable. Afebrile. HEENT: She is not icteric. NECK: Supple. CHEST: Clear. HEART: S1 and S2. No S3, S4, or murmur. ABDOMEN: Soft. EXTREMITIES: The leg, there is redness and swelling. IMPRESSION: 1. Cellulitis of the leg. 2. Dementia. 3. Anemia of chronic disease. 4. Hypokalemia, on admission. 5. We will put the patient on vancomycin and cefepime. Obtain blood cultures. Check CBC, check Chem panel to correct electrolyte. 6. Follow vancomycin level. Discussed with medical team. We will follow. MD JONO La/JAYCE /[id number]
[2019-12-04] VITALS (7 sets, daily range): BP systolic 116–172; BP diastolic 61–85
--- NOTE | 2019-12-04 | NUR ---
Patient in bed on right side. 1:1 sitter at bedside. Family continue to call with multiple questions. All questions answered. Patient c/o pain. Given pain meds as ordered by MD. Continue monitor.
[2019-12-04] MEDS: SODIUM CHLORIDE 0.9% 1000ML 1,000 ML IV SCH ×2 (03:00→05:20)
[2019-12-04] MEDS: CEFEPIME 1GM/NS 0.9% 50 ML 50 ML IV SCH ×3 (05:20→21:45)
[2019-12-04] MEDS: LEVOTHYROXINE SODIUM 50 MCG TAB PO SCH (05:21)
[2019-12-04] MEDS: ACETAMINOPHEN/CODEINE 300MG - 30MG TAB PO PRN ×2 (05:27→12:35)
--- NOTE | 2019-12-04 07:31 | Progress Note ---
DATE: SUBJECTIVE: The patient was admitted to the hospital for lower extremity cellulitis and the patient is currently on vancomycin and cefepime. Still complaining of pain, which is baseline for the patient's baseline extremities. The patient is doing well except for pain. No updates from the sitter. OBJECTIVE: VITAL SIGNS: Temperature 96.6, pulse 75, respirations of 20, blood pressure is 172/85 with a pulse oximetry of 97%. HEENT: Normocephalic and atraumatic. Pupils are reactive. CVS: S1 and S2 normal. The patient is very thin, frail, cachectic. ABDOMEN: Nontender and nondistended. EXTREMITIES: Positive for swelling, erythema, and tenderness and redness. ASSESSMENT: 1. Cellulitis of the leg. Continue vancomycin and cefepime. 2. Dementia. 3. Frailty, debility, and cachexia. 4. Anemia of chronic disease. 5. Dementia. PLAN: Would be to continue vancomycin and cefepime. Blood pressure is on the higher side. The patient also has atrial fibrillation. Coumadin was restarted yesterday again. We will wait for the INR today. Last vancomycin trough was 23, has been held. Coags; restarted today again. We will check her INR. Blood pressure is trending up slightly. Currently, the medication she is on is carvedilol 3.125 mg twice a day. We will go ahead and add hydralazine 10 mg IV q.6 hours as needed for blood pressure above 170. MD EMANUEL Felipe/JAYCE /[id number]
[2019-12-04 08:19] LABS: INR 2.49; PROTHROMBIN TIME 28.8 seconds (11.9-14.5)
[2019-12-04] MEDS: VANCOMYCIN 1GM/NS 250 ML 250 ML IV SCH (09:11)
[2019-12-04] MEDS: FAMOTIDINE 20 MG TAB PO SCH ×2 (09:11→17:08)
[2019-12-04] MEDS: CARVEDILOL 3.125 MG TAB PO SCH ×2 (09:11→17:09)
[2019-12-04] MEDS: FUROSEMIDE 20 MG TAB PO SCH (09:11)
[2019-12-04] MEDS: NYSTATIN 15 GM POWDER UD BTL TOP SCH ×2 (09:12→17:05)
[2019-12-04] MEDS: MORPHINE SULFATE 2 MG/ML SYR 1ML IV PRN ×2 (09:18→17:10)
[2019-12-04] MEDS: AMLODIPINE BESYLATE 5 MG TAB PO SCH (12:06)
[2019-12-04] MEDS: ONDANSETRON HCL INJ 2MG/ML 2ML 2 MG/ML VIAL IV PRN (17:09)
[2019-12-04] MEDS: WARFARIN SOD 3 MG TAB PO SCH (17:09)
--- NOTE | 2019-12-04 19:38 | NUR ---
Received change of shift report from AM nurse. Walking rounds completed.
[2019-12-04] MEDS: DOCUSATE SODIUM 100 MG CAP PO SCH (21:00)
[2019-12-05] VITALS (8 sets, daily range): BP systolic 116–183; BP diastolic 54–86
--- NOTE | 2019-12-05 | NUR ---
Patient require pain meds q3-4 hours. Repositioned q2 hours as patient allow. Family calling to check on patient. Sitter at bedside.
[2019-12-05] MEDS: MORPHINE SULFATE 2 MG/ML SYR 1ML IV PRN ×3 (03:00→18:35)
[2019-12-05] MEDS: ONDANSETRON HCL INJ 2MG/ML 2ML 2 MG/ML VIAL IV PRN ×3 (03:01→18:35)
[2019-12-05] MEDS: CEFEPIME 1GM/NS 0.9% 50 ML 50 ML IV SCH ×3 (05:20→21:40)
[2019-12-05] MEDS: LEVOTHYROXINE SODIUM 50 MCG TAB PO SCH (05:20)
[2019-12-05 06:09] LABS: BASOPHILS # (AUTO) 0.1 (0.0-0.1); BASOPHILS % 0.9 % (0.0-1.0); EOSINOPHILS % 0.5 % (0.0-6.0); HEMATOCRIT 37.2 % (34.2-44.1); LYMPHOCYTES # (AUTO) 1.8 (1.0-3.2); MEAN CORPUSCULAR HEMOGLOBIN 32.4 pg (28-32); MEAN CORPUSCULAR HGB CONC 32.3 g/dL (31-35); MEAN CORPUSCULAR VOLUME 100.5 fL (81-99); MONOCYTES # (AUTO) 0.7 (0.2-0.8); MONOCYTES % 7.9 % (4.4-11.3); NEUTROPHILS # (AUTO) 5.6 (2.1-6.9); NEUTROPHILS % 65.6 % (38.7-80.0); PLATELET COUNT 249 x10e3/uL (140-360); RED CELL DISTRIBUTION WIDTH 13.8 % (11.7-14.4)
[2019-12-05] MEDS ORDERED: CLONIDINE HCL 0.1 MG TAB PO PRN (06:15)
[2019-12-05 06:26] LABS: INR 3.03; PROTHROMBIN TIME 33.7 seconds (11.9-14.5)
--- NOTE | 2019-12-05 06:32 | NUR ---
Dr Chapa on floor to see patient. Orders written and noted. Continue monitor.
[2019-12-05 06:35] LABS: ALANINE AMINOTRANSFERASE 12 IU/L (0-55); ALBUMIN 2.4 g/dL (3.5-5.0); ALBUMIN/GLOBULIN RATIO 0.6 (0.8-2.0); ALKALINE PHOSPHATASE 50 IU/L (40-150); ANION GAP 15.9 mmol/L (8-16); BLOOD UREA NITROGEN 10 mg/dL (7-26); BUN/CREATININE RATIO 17 (6-25); CARBON DIOXIDE 26 mmol/L (22-29); CHLORIDE 102 mmol/L (98-107); CREATININE, SERUM 0.59 mg/dL (0.57-1.11); EST GLOMERULAR FILTRATION RATE > 60 ML/MIN (60-); GLUCOSE 86 mg/dL (74-118); MAGNESIUM 1.6 MG/DL (1.3-2.1); SODIUM 141 mmol/L (136-145)
[2019-12-05 06:36] LABS: POTASSIUM 2.9 mmol/L (3.5-5.1)
--- NOTE | 2019-12-05 06:50 | NUR ---
RECEIVED BEDSIDE SHIFT REPORT FROM GOING NURSE. PATIENT IS RESTING IN BED. NO ACUTE DISTRESS NOTED. 1:1 SITTER AT BEDSIDE. CALL LIGHT WITHIN REACH. BED IN THE LOWEST POSITION. BED ALARM ON.
[2019-12-05 07:16] LABS: LYMPHOCYTES % (MANUAL) 17 % (19-48); MONOCYTES % (MANUAL) 7 % (3.4-9.0); NEUTROPHILS % (MANUAL) 76 % (40-74)
[2019-12-05 07:17] LABS: HYPOCHROMASIA SLIGHT; PLATELET ESTIMATE ADEQUATE; PLATELET MORPHOLOGY COMMENT NORMAL; RBC MORPHOLOGY COMMENT NORMAL
[2019-12-05] MEDS ORDERED: POTASSIUM CHLORIDE 20MEQ/100ML 200 ML IV ONE ×3 (08:00→13:15)
[2019-12-05] MEDS ORDERED: POTASSIUM CHLORIDE 20 MEQ TAB CR PO SCH (08:00)
[2019-12-05] MEDS: DOCUSATE SODIUM 100 MG CAP PO SCH ×2 (08:27→17:09)
[2019-12-05] MEDS: DRONABINOL 2.5MG PO SCH ×2 (08:27→17:09)
[2019-12-05] MEDS: FAMOTIDINE 20 MG TAB PO SCH ×2 (08:27→17:09)
[2019-12-05] MEDS: VANCOMYCIN 1GM/NS 250 ML 250 ML IV SCH (08:27)
[2019-12-05] MEDS: CARVEDILOL 3.125 MG TAB PO SCH ×2 (08:28→17:09)
[2019-12-05] MEDS: AMLODIPINE BESYLATE 5 MG TAB PO SCH (08:28)
[2019-12-05] MEDS: FUROSEMIDE 20 MG TAB PO SCH (08:28)
[2019-12-05] MEDS: NYSTATIN 15 GM POWDER UD BTL TOP SCH ×2 (08:28→17:09)
--- NOTE | 2019-12-05 10:42 | NUR ---
Notified Dr. Chapa of INR of 3.03 and patient getting scheduled Coumadin 3mg daily, per MD hold today's dose.
[2019-12-05] MEDS ORDERED: CHLORASEPTIC SPRAY 177 ML BTL MM PRN (13:15)
--- NOTE | 2019-12-05 13:15 | Progress Note ---
DATE: SUBJECTIVE: Ms. White is improving. Today there is no new complaint. REVIEW OF SYSTEMS: HEENT: Negative. PULMONARY: Negative. CARDIAC: Negative. PHYSICAL EXAMINATION: GENERAL: She is currently alert, oriented, does not seem in acute distress. VITAL SIGNS: Stable, currently afebrile. HEENT: She is not icteric. NECK: Supple. CHEST: Clear. HEART: S1 and S2. No S3, S4 or murmur. ABDOMEN: Soft. EXTREMITIES: The leg seems to be much better. IMPRESSION: 1. Left leg cellulitis, improving. 2. Dementia, stable. 3. Urinary tract infection/colonization with Escherichia coli, Klebsiella . Continue IV antibiotic for now, probably can switch to oral soon once I see significant improvement. We will follow. MD JONO La/JAYCE /[id number]
--- NOTE | 2019-12-05 16:18 | NUR ---
Nutrition Intervention Note RD Recommendation(s) for Physician: - Continue current diet - Recommend Ensure Compact TID for adequacy - Continue Marinol to encourage po intake Plan of Care: RD following, monitoring for tolerance and adequacy, ONS. Nutrition reason for involvement: LOS RD Assessment 12/04: 89 YOF admitted for L lower leg cellulitis, seen today for LOS. Pt Danish speaking only and confused, unable to obtain hx. RN at bedside provided translation at time of visit- pt unable to answer questions. Per RN pt complaining of sore throat, not eating much, but will accept/drink fluids. Discussed supplement, RD to order Ensure Compact TID. No reported GI distress. Chart reviewed. Pt currently on Marinol. Will monitor and continue to follow. Principal Problems/Diagnoses: L lower leg cellulitis PMH: dementia, HTN, hypothyroidism, GERD, CAD GI: LBM 12/02 x 2 Skin: L lower leg cellulitis Labs: 12/04: Na 141, K 2.9, BUN 10, Cr 0.59, Gluc 86, Mg 1.6 Meds: KCl IVPB, morphine, coumadin, zofran, lasix, marinol, colace, abx, pepcid, synthroid Ht: 54 in Wt: 99 lb BMI: 23.9 kg/m2 IBW: 85 lb Malnutrition Evaluation (12/05/19) The patient meets criteria for MILD protein-calorie malnutrition. Energy intake: <75% of meals x 5 days since admit Weight loss: EMMANUEL Fat loss: Mild, hollowing around eyes Muscle loss: none, shoulder round Supporting Evidence: Fluid accumulation: none observed Functional Status: not assessed Nutrition Prescription (Diet Order): Cardiac Estimated Nutritional Needs: 2504-4039 calories/day (25-30 kcal/kg CBW) 45-67 g protein/day (1-1.5 g pro/kg CBW) Diet Adequacy: Not meeting calorie needs, Not meeting protein needs Diet Tolerance: tolerating po, sore throat per RN Diet Education Needs Assessment: Diet education not indicated at this time. Nutrition Care Level: moderate Nutrition Diagnosis: Inadequate energy and protein intake related to current medical conditions as evidence by not meeting needs. Goal: Patient will meet 75-100% of estimated needs by follow up Progress: N/A Interventions: -Fat, mineral modified diet, Commercial beverage, Prescription medication, Collaboration with other providers Monitoring/Evaluation: -Total energy intake, Total protein intake, Prescription medication, Modified diet, Liquid supplement Signed: Angy Banda RD, [facility], [facility]
[2019-12-05] MEDS: WARFARIN SOD 3 MG TAB PO SCH (17:00)
--- NOTE | 2019-12-05 19:15 | NUR ---
patient received lying quietly in bed. no signs of pain/discomfort noted. ivf continue to infuse without difficulty. respirations even and unlabored. 1:1 remains at the bedside for safety. pm assessment complete.
[2019-12-06] MEDS: SODIUM CHLORIDE 0.9% 1000ML 1,000 ML IV SCH ×2 (00:20→20:52)
[2019-12-06] MEDS: ONDANSETRON HCL INJ 2MG/ML 2ML 2 MG/ML VIAL IV PRN ×2 (01:15→13:54)
[2019-12-06] MEDS: MORPHINE SULFATE 2 MG/ML SYR 1ML IV PRN ×2 (01:15→13:55)
--- NOTE | 2019-12-06 01:15 | NUR ---
patient medicated with morphine 2mg and zofran 4mg ivp for c/o left foot pain 03/02 at this time.
[2019-12-06 04:00] VITALS: BP 138/66
[2019-12-06] MEDS: LEVOTHYROXINE SODIUM 50 MCG TAB PO SCH (05:27)
[2019-12-06] MEDS: CEFEPIME 1GM/NS 0.9% 50 ML 50 ML IV SCH ×3 (05:27→22:30)
[2019-12-06] MEDS ORDERED: TRIAMCINOLONE ACET 40 MG/ML VIAL IM ONE (05:30)
[2019-12-06] MEDS ORDERED: KETOROLAC TROMETHAMINE 30 MG/ML VIAL IV STA (05:30)
[2019-12-06 06:40] LABS: INR 3.71; PROTHROMBIN TIME 39.7 seconds (11.9-14.5)
[2019-12-06 06:53] LABS: ALANINE AMINOTRANSFERASE 11 IU/L (0-55); ALBUMIN 2.3 g/dL (3.5-5.0); ALBUMIN/GLOBULIN RATIO 0.6 (0.8-2.0); ALKALINE PHOSPHATASE 53 IU/L (40-150); ANION GAP 11.1 mmol/L (8-16); BLOOD UREA NITROGEN 9 mg/dL (7-26); BUN/CREATININE RATIO 13 (6-25); CALCIUM 8.3 mg/dL (8.4-10.2); CARBON DIOXIDE 29 mmol/L (22-29); CHLORIDE 104 mmol/L (98-107); CREATININE, SERUM 0.67 mg/dL (0.57-1.11); EST GLOMERULAR FILTRATION RATE > 60 ML/MIN (60-); GLUCOSE 90 mg/dL (74-118); SODIUM 140 mmol/L (136-145)
[2019-12-06 06:54] LABS: POTASSIUM 4.1 mmol/L (3.5-5.1)
--- NOTE | 2019-12-06 06:58 | Progress Note ---
DATE: 12/05/2019 SUBJECTIVE: Marianne White is a pleasant 89-year-old female, , very fragile, small stature, admitted to the hospital due to cellulitis of the left lower extremity. Currently, she is comfortable in bed, in no acute distress. MEDICATIONS: Medication list reviewed. As far as Infectious Disease point of view, the patient is on cefepime and vancomycin IV. REVIEW OF SYSTEMS: The patient is lethargic, unable to obtain a complete review of systems; however, responds appropriately and states that she is fine. The patient has some pain with the left lower extremity, which seems to be improving since last time I visited with her. Discussed with staff. The patient has no nausea, vomiting, fever, chills, chest pain, or shortness of breath. PHYSICAL EXAMINATION: VITAL SIGNS: Temperature 97.9. The patient is afebrile throughout the hospitalization, pulse 86, respirations 16, blood pressure 158/78. GENERAL: Alert and oriented, weak, fragile. CV: S1 and S2. CHEST: Equal expansion. Clear to auscultation. No acute distress. ABDOMEN: Soft and nontender. No distention. HEENT: Moist. No pallor. No JVD. EXTREMITIES: With cellulitis of the left lower extremity, which improved in erythema and edema, also is not as tender as that used to be. LABORATORY DATA: White blood cells 8.56, hemoglobin 12, and platelet 249. Sodium 141, potassium 2.9, creatinine 0.59. Vancomycin was 23 on 12/03/2019. MICORBILOGY: Blood cultures negative. Urine culture showed E coli and Klebsiella with many options as far as antibiotics. RADIOLOGY STUDIES: She had bilateral lower extremity arterial Doppler, that showed evidence of arterial disease without significant arterial stenosis. ASSESSMENT AND PLAN: This is a pleasant 89-year-old female, admitted with cellulitis of the left lower extremity, which seems to be improving. Also, electrolyte abnormality, hypertension, anorexia, abnormal urine culture with Escherichia coli and Klebsiella, hypothyroidism, debility, elevated vancomycin trough. Vancomycin was re-dosed. Continue with vancomycin IV and cefepime at this point. Continue to monitor cellulitis of the lower extremity and further management of this patient is based on daily finding on laboratory and physical examination. This was discussed with Dr. David. Please refer to the chart for more information. Dictated by OMEGA Vicente (Al)C MD FARHAT La/JAYCE /[id number]
--- NOTE | 2019-12-06 07:20 | NUR ---
PATIENT IN BED RESTING WITH NO S/S OF DISTRESS. HEEL PROTECTOR IN PLACE. 1:1 SITTER AT BED SIDE. BED IN LOWER POSITION, CALL LIGHT AT REACH.
[2019-12-06 07:30] VITALS: BP 124/59
--- NOTE | 2019-12-06 08:34 | NUR ---
CALL TO DR. ROBLEDO REGARDING PLAN FOR THE PT. STATES HE PLAN TO DC HOME IN A FEW DAYS.
[2019-12-06 08:56] VITALS: BP 124/59
[2019-12-06] MEDS: NYSTATIN 15 GM POWDER UD BTL TOP SCH ×2 (09:22→17:11)
[2019-12-06] MEDS: FUROSEMIDE 20 MG TAB PO SCH (09:22)
[2019-12-06] MEDS: DOCUSATE SODIUM 100 MG CAP PO SCH ×2 (09:22→17:11)
[2019-12-06] MEDS: VANCOMYCIN 1GM/NS 250 ML 250 ML IV SCH (09:22)
[2019-12-06] MEDS: DRONABINOL 2.5MG PO SCH ×2 (09:22→17:11)
[2019-12-06] MEDS: AMLODIPINE BESYLATE 5 MG TAB PO SCH (09:22)
[2019-12-06] MEDS: FAMOTIDINE 20 MG TAB PO SCH ×2 (09:22→17:11)
[2019-12-06] MEDS: CARVEDILOL 3.125 MG TAB PO SCH ×2 (09:23→17:11)
--- NOTE | 2019-12-06 11:31 | NUR ---
PATIENT REPOSITIONED IN BED. 1:1 SITTER AT BED SIDE. CALL LIGHT AT REACH.
[2019-12-06 12:00] VITALS: BP 121/60
--- NOTE | 2019-12-06 13:26 | Progress Note ---
DATE: SUBJECTIVE: Ms. White is currently comfortable in bed, in no acute distress. Sitter is in her room. She states that the patient is sleepy today; however, she ate better today. The patient is nonverbal and unable to obtain review of systems, but by my discussion with staff, there are no new events other than what is mentioned above. ALLERGIES: ASPIRIN. MEDICATIONS: Medication list reviewed. As far as Infectious Disease point of view, the patient is on vancomycin IV and cefepime. OBJECTIVE: VITAL SIGNS: Temperature is 97.8, pulse 86, respirations 16, blood pressure 124/59. GENERAL: Comfortable in bed, in no acute distress. CV: S1 and S2. CHEST: Equal expansion, clear to auscultation. ABDOMEN: Soft and nontender. No distention. HEENT: Moist. No pallor. No JVD. LOWER EXTREMITIES: Cellulitis of the left leg, improving gradually. She remains with discomfort during physical exam. LABORATORY STUDIES: White count of 8.56, hemoglobin 12, and platelets 249. Creatinine 0.67. MICROBIOLOGY: No new microbiology studies available. IMAGING: Bilateral lower extremity arteriogram showed evidence of arterial disease without significant arterial stenosis bilaterally. ASSESSMENT AND PLAN: 1. Cellulitis of the left lower extremity. 2. Abnormal urine culture with Escherichia coli and Klebsiella. 3. Hypertension. 4. Debility. Continue with vancomycin IV and cefepime. Monitor the patient clinically, follow the labs, electrolyte abnormalities per orders. Please refer to chart for more information. Dictated by Sánchez Becker PA-C (Al) Matias David MD /MODL /[id number]
--- NOTE | 2019-12-06 15:48 | NUR ---
PATIENT'S INR IS 3.71, MD NOTIFIED. NEW ORDER RECEIVED TO HOLD MED.
[2019-12-06 16:00] VITALS: BP 103/56
[2019-12-06 20:00] VITALS: BP 113/55
[2019-12-06] MEDS: ACETAMINOPHEN/CODEINE 300MG - 30MG TAB PO PRN (20:41)
--- NOTE | 2019-12-06 20:50 | NUR ---
Feliciano called for pain medication for patient. Attempted multiple attempts to administer medication for pain. Patient refusing. Will continue to monitor.
[2019-12-07] VITALS (7 sets, daily range): BP systolic 111–155; BP diastolic 55–66
--- NOTE | 2019-12-07 02:15 | NUR ---
Grandson call to check on patient, information given that patient stable. Grandson asked why sitter not answering cell phone in room and asking if sitter left room. Informed grandson that sister is at bedside. Went to room sitter on patient cell phone speaking to family member, hospital phone ringing at time another family member calling.
--- NOTE | 2019-12-07 03:20 | NUR ---
Feliciano called for pain medication for patient. Attempted multiple attempts to administer medication for pain. Patient refusing, stated " no" and shaking head. Education provided that medication for pain in [place]. Patient continues to refuse. Will continue to monitor.
[2019-12-07] MEDS: LEVOTHYROXINE SODIUM 50 MCG TAB PO SCH (06:00)
[2019-12-07] MEDS: CEFEPIME 1GM/NS 0.9% 50 ML 50 ML IV SCH ×3 (06:29→21:31)
--- NOTE | 2019-12-07 06:29 | NUR ---
Patient refused morning medication levothyroxine. Education provided in Croatian medication education. Patient continue to refuse.
--- NOTE | 2019-12-07 07:10 | NUR ---
Bedside report and rounds completed with on coming nurse. Patient in bed with call light within reach. No issues or concerns noted.
--- NOTE | 2019-12-07 07:17 | NUR ---
PATIENT IN BED RESTING WITH NO S/S OF DISCOMFORT. 1:1 SITTER AT BED SIDE. BED IN LOWER POSITION, CALL LIGHT AT REACH.
[2019-12-07] MEDS: VANCOMYCIN 1GM/NS 250 ML 250 ML IV SCH (09:10)
[2019-12-07] MEDS: CARVEDILOL 3.125 MG TAB PO SCH ×2 (09:24→17:37)
[2019-12-07] MEDS: DRONABINOL 2.5MG PO SCH ×2 (09:24→17:18)
[2019-12-07] MEDS: NYSTATIN 15 GM POWDER UD BTL TOP SCH (09:24)
[2019-12-07] MEDS: DOCUSATE SODIUM 100 MG CAP PO SCH ×2 (09:24→17:18)
[2019-12-07] MEDS: FUROSEMIDE 20 MG TAB PO SCH (09:24)
[2019-12-07] MEDS: FAMOTIDINE 20 MG TAB PO SCH ×2 (09:24→17:18)
[2019-12-07] MEDS: AMLODIPINE BESYLATE 5 MG TAB PO SCH (09:24)
[2019-12-07] MEDS: ACETAMINOPHEN/CODEINE 300MG - 30MG TAB PO PRN (10:25)
--- NOTE | 2019-12-07 11:00 | NUR ---
SPOKE WITH MD REGARDING ABNORMAL LAB RESULT, NO NEW ORDER RECEIVED.
--- NOTE | 2019-12-07 12:09 | Progress Note ---
DATE: SUBJECTIVE: Ms. White is a pleasant 89-year-old female, comfortable in bed, no acute distress. REVIEW OF SYSTEMS: Unable to obtain review of systems. The patient is weak and sleepy. However, appetite is good and eats well per my discussion with staff. ALLERGIES: ASPIRIN. OBJECTIVE: VITAL SIGNS: Temperature 98.6, pulse 93, respirations 22, blood pressure 155/64. MEDICATIONS: Medication list reviewed. As far as Infectious Disease point of view, the patient is on vancomycin IV and cefepime. LABORATORY STUDIES: Vancomycin trough is 16.5. White blood cells 8.56, hemoglobin 12, platelets 249. Sodium 140, potassium 4.1, creatinine 0.67. MICROBIOLOGY: Blood culture negative. Urine culture, E coli and Klebsiella, both have many options for antibiotics. RADIOLOGY STUDIES: No new radiology studies available. She had an arterial Doppler done on 12/04 showing evidence of arterial disease without significant arterial stenosis bilaterally. PHYSICAL EXAMINATION: GENERAL: Comfortable in bed, no acute distress. CV: S1-S2. CHEST: Equal expansion and clear to auscultation. ABDOMEN: Soft and nontender. No distention. HEENT: Moist. No pallor. No JVD. EXTREMITIES: Cellulitis of left lower extremity, improved. ASSESSMENT AND PLAN: An 89-year-old female with cellulitis of left lower extremity. 1. Urinary tract infection with Escherichia coli and Klebsiella. 2. Hypertension. 3. Debility, currently on vancomycin IV and cefepime. Discharge with p.o. antibiotics. Discharge plan noted for next couple of days. Available labs and notes reviewed. Discussed with Dr. David. Please refer to the chart for more information. Dictated by Sánchez Becker PA-C (Al) Matias David MD /YONIL /[id number]
[2019-12-07] MEDS: SODIUM CHLORIDE 0.9% 1000ML 1,000 ML IV SCH (18:24)
--- NOTE | 2019-12-07 19:00 | NUR ---
RECEIVED PATIENT IN BEDSIDE SHIFT REPORT. PATIENT RESTING IN BED AT THIS TIME, ON THE PHONE WITH FAMILY MEMBER. SITTER AT BEDSIDE. NO S&S OF DISTRESS NOTED. BED LOCKED IN LOWEST POSITION, SIDE RAILS UPX2, CALL LIGHT IN REACH.
[2019-12-08] VITALS: BP 128/62
[2019-12-08 04:00] VITALS: BP 148/63
[2019-12-08] MEDS: CEFEPIME 1GM/NS 0.9% 50 ML 50 ML IV SCH (06:03)
--- NOTE | 2019-12-08 06:18 | Discharge Summary ---
DISCHARGE DIAGNOSIS: Sepsis secondary to cellulitis and urinary tract infection. HISTORY OF PRESENT ILLNESS AND HOSPITAL COURSE: The patient is an elderly lady, who presented with acute onset of left lower extremity cellulitis, pain, and sepsis. She was brought and she was placed on IV antibiotics. Urine cultures did grow out two organisms that was sensitive to the antibiotics she is on. She was seen by Infectious Disease. Her leg significantly improved at the time of discharge. There was very minimal redness almost completely resolved her pain and also significantly improved to the left lower extremity. She did have arterial venous Dopplers that were unremarkable. She did, however, does not eat very well in the hospital. Family felt like it was due to her not being able to see her family, but the night before discharge, she has ate much better, had a daily discussions with the family and the patient was discharged home per her wishes on p.o. Keflex 500 mg p.o. b.i.d. for 10 more days as well as some Tylenol No. 3 for pain. She will follow up in 1 to 2 weeks with me. Please see hospital chart for full details. MD CHELSY Balderas/JAYCE /[id number]
--- NOTE | 2019-12-08 07:00 | NUR ---
Received bedside shift report from off going nurse.Patient in stable condition, no s/s of distress noted. No complaints of pain noted. Telemetry in place and working. Sitter at bedside. Bed in lowest position and locked. Call light within reach.
[2019-12-08 07:30] VITALS: BP 142/64
[2019-12-08] MEDS ORDERED: KEFLEX500 MG PO (08:29)
[2019-12-08] MEDS ORDERED: TYLENOL # 31 EA PO (08:31)
[2019-12-08 08:56] VITALS: BP 142/64
[2019-12-08] MEDS: VANCOMYCIN 1GM/NS 250 ML 250 ML IV SCH (08:57)
[2019-12-08] MEDS: FUROSEMIDE 20 MG TAB PO SCH (08:58)
[2019-12-08] MEDS: CARVEDILOL 3.125 MG TAB PO SCH (08:58)
[2019-12-08] MEDS: AMLODIPINE BESYLATE 5 MG TAB PO SCH (08:58)
[2019-12-08] MEDS: DRONABINOL 2.5MG PO SCH (08:59)
[2019-12-08] MEDS: FAMOTIDINE 20 MG TAB PO SCH (08:59)
[2019-12-08] MEDS: DOCUSATE SODIUM 100 MG CAP PO SCH (09:00)
--- NOTE | 2019-12-08 09:19 | Progress Note ---
DATE: SUBJECTIVE: The patient is seen and evaluated. Sitter in the , the patient with poor appetite. REVIEW OF SYSTEMS: Unable to obtain review of systems secondary to the patient's medical condition. ALLERGIES: ASPIRIN. OBJECTIVE: VITAL SIGNS: Temperature is 98.6, pulse 86, respirations 16, blood pressure 142/64. GENERAL: Comfortable in bed, in no acute distress. ABDOMEN: Soft and nontender. No distention. HEENT: Moist. No pallor. No JVD. EXTREMITIES: Improved cellulitis of left lower extremities. Decreased edema and redness. MEDICATIONS: Medication is reviewed. As far as Infectious Disease point of view, the patient is on vancomycin IV and cefepime. LABORATORY STUDIES: White blood cells 8.56, hemoglobin 12, and platelets 249. These are all from 12/04. Also on 12/05, she had sodium 140, potassium 4.1, creatinine of 0.67. Vancomycin trough was 15.6 on 12/07/2019. MICROBIOLOGY STUDIES: No new microbiology studies available. RADIOLOGY STUDIES: No new radiology studies available. ASSESSMENT AND PLAN: The patient is an 89-year-old female, admitted with cellulitis of left lower extremity, which has improved significantly. The patient has been receiving IV antibiotics, vancomycin and cefepime. Other medical conditions include: 1. Urinary tract infection. 2. Hypertension. 3. Debility. 4. Poor oral intake. The patient is seen and evaluated. Discussed with Dr. David. Discharge in progress. The patient is going with Keflex p.o. I agree with the plan. Continue to monitor the patient clinically. Follow with the labs for the time the patient is here. Please refer to the chart for more information. Dictated by Sánchez Becker PA-C (Al) Matias David MD /MODL /[id number]
--- NOTE | 2019-12-08 10:49 | NUR ---
Patient discharged home. Patient off the unit @ 1012 via wheelchair accompanied by RN and PCT to the lobby. Patient in stable condition, No s/s of distress noted. No pain noted. PICC line removed 37cm intact. All personal items taken with patient. Discharge teaching and instructions given to the family with patient present. Family Verbalized understanding.
== END 2019-12-08 10:17 | disposition home or self-care (01) | DRG 871 ==
LOC: ER 10:21 → ERHOLD 12:12 → MED/SURG3 15:06
PROVIDERS: ADMIT Internal Medicine; ATTEND Internal Medicine
PROC: 02HV33Z Insertion of Infusion Device into Superior Vena Cava, Percutaneous Approach (ICD-10-PCS; principal; 2019-11-29)
PROC: 02HV33Z Insertion of Infusion Device into Superior Vena Cava, Percutaneous Approach (ICD-10-PCS; 2019-12-01)
DX: A41.9 Sepsis, unspecified organism (principal); G92 Toxic encephalopathy; L03.116 Cellulitis of left lower limb; N39.0 Urinary tract infection, site not specified; E44.1 Mild protein-calorie malnutrition; Z68.1 Body mass index [BMI] 19.9 or less, adult; I10 Essential (primary) hypertension; F03.90 Unspecified dementia, unspecified severity, without behavioral disturbance, psychotic disturbance, mood disturbance, and anxiety; D63.8 Anemia in other chronic diseases classified elsewhere; E87.6 Hypokalemia; I25.10 Atherosclerotic heart disease of native coronary artery without angina pectoris; I48.91 Unspecified atrial fibrillation; B96.20 Unspecified Escherichia coli [E. coli] as the cause of diseases classified elsewhere; B96.1 Klebsiella pneumoniae [K. pneumoniae] as the cause of diseases classified elsewhere; R65.20 Severe sepsis without septic shock; E03.9 Hypothyroidism, unspecified
CPT/HCPCS: 36415; 36569; 71045; 80053; 80202; 81001; 82550; 82553; 83605; 83735; 83880; 84132; 84484; 85025; 85610; 85730; 87040; 87086; 87186; 93925; 93971; 96361; 96365; 99284; J0692; J1885; J2270; J2405; J2543; J3301; J3370; J3480; J7030